=== PATIENT | female | born 1955 | race Caucasian/White ===

== ENCOUNTER → 2017-01-01 | Outpatient (CLI) | payer OTHER | LOC: FIMAGING 13:33 | DX: Z12.31 Encounter for screening mammogram for malignant neoplasm of breast (principal); Z80.3 Family history of malignant neoplasm of breast | CPT/HCPCS: G0202 ==

== ENCOUNTER → 2017-02-23 | Outpatient (CLI) | payer OTHER | LOC: FIMAGING 11:46 | PROVIDERS: ATTEND Physician Assistant | DX: M99.71 Connective tissue and disc stenosis of intervertebral foramina of cervical region (principal); M43.02 Spondylolysis, cervical region ==

== ENCOUNTER → 2018-01-07 | Outpatient (CLI) | payer OTHER | LOC: FIMAGING 08:14 | PROVIDERS: ATTEND Family Medicine | DX: Z12.31 Encounter for screening mammogram for malignant neoplasm of breast (principal) ==

== ENCOUNTER 2018-03-27 11:28 | Observation (INO) | payer OTHER ==
[2018-03-27] MEDS ORDERED: diphenhydrAMINE 25 MG CAP PO ONE (11:52)
[2018-03-27] MEDS ORDERED: DIAZEPAM 5 MG TAB PO ONE (11:52)
[2018-03-27] MEDS ORDERED: ASPIRIN EC 325 MG TAB PO ONE (11:52)
[2018-03-27] MEDS ORDERED: FAMOTIDINE 20 MG TAB PO ONE (11:52)
[2018-03-27] MEDS ORDERED: NS 1,000 ML IV ONE (11:52)
--- NOTE | 2018-03-27 12:03 | CPEKG ---
Heart Rate: 68 RR Interval: 882 P-R Interval: 156 QRSD Interval: 72 QT Interval: 448 QTC Interval: 477 P [place]: 54 QRS [place]: 35 T Wave [place]: 42 EKG Severity - NORMAL ECG - EKG Impression: SINUS RHYTHM Electronically Signed By: Celestine Zamora 28-Mar-2018 10:46:34
[2018-03-27 12:16] LABS: PLATELET COUNT 282 10^3/uL (150-400)
[2018-03-27 12:28] LABS: INR 0.93 (0.83-1.16); PROTIME(PATIENT) 12.7 SEC (12.0-15.0)
--- NOTE | 2018-03-27 12:52 | PDHPUP ---
History & Physical Update H&P update statement: This history and physical update is based on an assessment of the patient which was completed after admission or registration (within 24 hours), but prior to the surgery/procedure. pt is going to have c angio due to abnl ett / fam hx of premature cad / hbp / hlp all ? ans H&P update: H&P reviewed & patient examined, no change in patient's condition since H&P completed
--- NOTE | 2018-03-27 12:53 | PDPROPOC ---
Sedation Plan of Care Sedation Plan of Care: vital signs stable, mental status noted, patient educated of risks, benefits, alternatives, patient can tolerate sedation ASA Classification: ASA 1 Planned drugs: fentanyl, midazolam Mallampati Score: Class 1 Mallampati Reference Image: Patient passed 3-3-2 rule?: Yes
[2018-03-27] MEDS ORDERED: LIDOCAINE 1% 300 MG/30 ML SDV ONE (12:55)
[2018-03-27] MEDS ORDERED: MIDAZOLAM 2 MG/2 ML VIAL ONE ×3 (12:56→14:02)
[2018-03-27] MEDS ORDERED: IOPAMIDOL (ISOVUE-370) 150 ML BTL IV ONE ×2 (12:56→16:54)
[2018-03-27] MEDS ORDERED: fentaNYL 100 MCG/2 ML INJ ONE ×4 (12:56→14:17)
[2018-03-27] MEDS ORDERED: NITROGLYCERIN 1,500 MCG/15 ML VIAL MISC ONE (14:05)
[2018-03-27] MEDS ORDERED: HEPARIN 10,000 UNIT/10 ML MDV (1,000 UNIT/ML) ONE (14:16)
[2018-03-27] MEDS ORDERED: KETOROLAC 30 MG/1 ML SDV IVP ONE (15:20)
[2018-03-27] MEDS ORDERED: ONDANSETRON 4 MG/2 ML VIAL IVP PRN (15:22)
[2018-03-27] MEDS ORDERED: HYDROCODONE/APAP 5/325 TAB PO PRN (15:22)
[2018-03-27] MEDS ORDERED: OXYCODONE/APAP 5/325 TAB PO PRN (15:22)
[2018-03-27] MEDS ORDERED: NITROGLYCERIN 0.4 MG BTL SL PRN (15:22)
[2018-03-27] MEDS ORDERED: ATROPINE SULFATE 1 MG/10 ML SYR IVP PRN (15:22)
[2018-03-27] MEDS ORDERED: KETOROLAC 30 MG/1 ML SDV ONE (15:26)
--- NOTE | 2018-03-27 16:00 | CPIP ---
[f rep st] INVASIVE CARDIAC PROCEDURE DATE OF PROCEDURE: 03/27/2018 PROCEDURE PERFORMED: Left heart catheterization, left ventriculogram, right and left coronary arteri ogram. INDICATIONS: 1. The patient had a positive treadmill exercise stress test. 2. She also had a family history of premature coronary disease. 3. She has a history of hypertension. 4. She has history of hyperlipidemia. 5. It was recommended the patient undergo coronary angiography and she was given the options of furt her nuclear stress testing, etc., and wanted to proceed with coronary angiography. 6. I reviewed the risks with she and her of stroke, , limb loss, renal failure, myocard ial infarction, injury to the leg or vessels, bleeding and infection in the pre cath area with both h er and herself and went over all the alternative options to an invasive test at this point, a nd they want to proceed. 7. We then proceeded with the procedure. PROCEDURE IN DETAIL: 1. The patient had a left heart catheterization. 2. Left ventricular end-diastolic pressure 15 mmHg. 3. No aortic stenosis. LEFT VENTRICULOGRAM: Normal left ventricular systolic function. No regional wall motion abnormaliti es. No significant mitral regurgitation. LEFT MAIN CORONARY ANGIOGRAPHY: 1. Left main coronary artery is normal. 2. The left anterior descending artery is normal. 3. The circumflex coronary artery and all the major branches are normal. 4. The right coronary artery is normal and dominant. 5. The sheath was placed with the ultrasonic probe at the beginning of the of the procedure and exce llent return of blood flow was obtained. At the end of the study, when an injection was done to see if the patient was candidate for Angio-Seal, it was clear that there was not good distal blood flow a nd a question of dissection arose of the iliac artery. Dr. Huma Burnette came into the room from the interventional Radiology Service within 3-minutes of our doin g the injection and then she proceeded to do an angioplasty procedure of the external iliac artery. At the end of that procedure, the patient had excellent blood flow and Dr. Burnette recommended that we pr oceed with Angio-Seal and 2-hours later, the patient could be up and walking and then would be ready to go home than need to stay in the hospital any longer than usual or overnight. The patient immediately had excellent blood flow to the lower extremity. CONCLUSIONS: 1. Normal coronary angiography. 2. Dissection of the external iliac. /[id number]/MODL
--- NOTE | 2018-03-27 16:29 | CPIP ---
[f rep st] INVASIVE CARDIAC PROCEDURE FOLLOWUP ADDENDUM: Procedure was left heart catheterization, left ventriculogram, right and left cor onary arteriogram. I just left the patient's bedside. She is having some cramping in her calf. She has excellent dista l pulses that are palpable, and they are equal to the other side, both posterior tibial and dorsalis pedis. She has great color in both extremities that is equal. Her complaints of some calf pain were discussed with Dr. Burnette, and she felt that it was understandable given the procedure the patient had. We have given the patient some Toradol for outpatient medications. Dr. Burnette recommended following u p with Motrin. We discussed anticoagulation and the recommendation is to just have the patient take aspirin 81 mg a day. She has already had an aspirin dose today, and the patient will continue that. I talked to the patient and her about she would like very much to go home today, and Dr. Burnette thinks that is reasonable. But if she should be at home and have significant pain or any other quest ions or troubles to come back to the emergency room at any time, and then they are going to have a fo llowup visit with me. All their questions have been answered. /[id number]/MODL
[2018-03-27] MEDS: LOSARTAN POTASSIUM 50 MG TAB PO SCH ×2 (18:36→18:38)
[2018-03-27] MEDS: ENOXAPARIN 60 MG/0.6 ML SYR SC SCH (20:16)
[2018-03-27] MEDS: KETOROLAC 15 MG/1 ML SDV IVP PRN (20:16)
[2018-03-27] MEDS ORDERED: FAMOTIDINE 20 MG TAB PO SCH (21:00)
[2018-03-27] MEDS ORDERED: ENOXAPARIN 40 MG/0.4 ML SYR SC SCH (21:00)
[2018-03-27] MEDS ORDERED: CHOLECALCIFEROL VIT D3 1,000 UNITS TAB PO SCH (21:00)
[2018-03-27] MEDS ORDERED: ATORVASTATIN CALCIUM 40 MG TAB PO SCH (21:00)
[2018-03-27] MEDS ORDERED: CIMETIDINE 400 MG PO SCH (21:00)
[2018-03-27] MEDS ORDERED: CARISOPRODOL 350 MG TAB PO SCH (21:00)
[2018-03-27] MEDS ORDERED: ASPIRIN 81 MG CHEWABLE TAB PO SCH (21:00)
[2018-03-28] MEDS: KETOROLAC 15 MG/1 ML SDV IVP PRN ×2 (01:25→08:44)
[2018-03-28] MEDS: LOSARTAN POTASSIUM 50 MG TAB PO SCH (08:43)
--- NOTE | 2018-03-28 09:14 | SOAPPROG ---
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 Plan: Serum Cr pending this am. CTA with Runoff later this morning. 03/28/18 09:13 Subjective: "Leg feels a little better." Ambulated Objective: Vital Signs Temp Pulse Resp BP Pulse Ox 37.1 C 70 12 137/86 H 97 03/28/18 07:13 03/28/18 07:13 03/28/18 07:13 03/28/18 07:13 03/28/18 07:13 Laboratory Results 03/27/18 12:13 03/27/18 12:13 03/27/18 03/28/18 03/29/18 05:59 05:59 05:59 Intake Total 250 Balance 250 PT 12.7 SEC (12.0-15.0) 03/27/18 12:13 INR 0.93 (0.83-1.16) 03/27/18 12:13 Compared to LT leg, RT leg has some limited dorsiflexion due to calf pain. Pulses normal on palpation, and symmetric bilaterally. ICD10 Worksheet Patient Problems: Problems Problem Status Onset Chest pain Acute - ICD10 Problem Qualifiers (1) Chest pain
[2018-03-28] MEDS ORDERED: IOPAMIDOL (ISOVUE-370) 150 ML BTL IV ONE (10:55)
[2018-03-28 11:05] VITALS: BP 121/82
[2018-03-28] MEDS: ENOXAPARIN 60 MG/0.6 ML SYR SC SCH (12:06)
[2018-03-28] MEDS ORDERED: amLODIPine BESYLATE 5 MG TAB PO SCH (12:45)
--- NOTE | 2018-03-28 13:55 | ASMTLACE ---
CHAITANYAE Length of stay for Answers: 1 day current admission Acuity / Level of Answers: Yes Care: Did the patient have an inpatient admission? Comorbidities - select Answers: Other Notes: Required left heart all that apply catherization, left ventriculogram, right a nd left coronary arteriogr am # of Emergency department Answers: 0 visits in the last 6 months Score: 5 Date Signed: 03/28/2018 01:54 PM Electronically Signed By:Bailey Elise
--- NOTE | 2018-03-28 14:21 | ASDISCHSUM ---
Discharge Information Plan Status:Home with No Needs Medically Cleared to Leave:03/28/2018 Discharge Date:03/28/2018 02:15 PM CM D/C Disposition:Home, Routine, Self-Care ADT D/C Disposition:Home, Routine, Self-Care Projected Discharge Date:03/28/2018 02:15 PM Transportation at D/C: Discharge Delay Reason: Follow-Up Date:03/28/2018 02:15 PM Discharge Slot: Final Diagnosis: Placement Information Patient Contact Information Contact Name:QINGROSALBALuis Relationship: Address:[address] [place] City:[facility] Phone: [facility]/Zip Code:[place] [address] Email: Financial Information Financial Class:HMO and PPO Plans Primary Plan Desc:LEYLA [employer]ARTON PPO POS Primary Plan Number:[id number] Secondary Plan Desc: Secondary Plan Number: Assessment Information LACE LACE Length of stay for Answers: 1 day current admission Acuity / Level of Answers: Yes Care: Did the patient have an inpatient admission? Comorbidities - select Answers: Other Notes: Required left heart all that apply catherization, left ventriculogram, right a nd left coronary arteriogr am # of Emergency department Answers: 0 visits in the last 6 months Score: 5 Date Signed: 03/28/2018 01:54 PM Electronically Signed By:Bailey Elise Case Management Discharge Plan Note Case Management Discharge Discharge Order Complete? Answers: Yes Patient to Obtain Answers: Independently Medications Transportation Arranged Answers: Family/Friends Family Notified Answers: Yes Discharge Comments Notes: Pt discharging home independently due to not having any recommended after care needs. Date Signed: 03/28/2018 01:56 PM Electronically Signed By:Bailey Elise Intervention Information
--- NOTE | 2018-03-28 14:54 | GDS ---
[f rep st] DISCHARGE SUMMARY DISCHARGE DIAGNOSES: 1. Abnormal stress test, status post left heart catheterization with normal course. 2. 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 3. Hypertension. 4. Dyslipidemia. PROCEDURES: 1. 03/27/2018, cardiac catheterization, which showed normal coronary arteries. At the end of the st udy, it was discovered that the patient had no distal blood flow suggestive of iliac artery dissectio n. 2. 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 Burnette for iliac artery dissection. 3. 03/28/2018, CT-A of the aorta with runoff, which showed resolution of right external iliac artery dissection, minimal divot at the common femoral artery entrance site that is not rate limiting, wide ly patent bilateral lower extremity runoff. BRIEF HISTORY: Please see dictated H and P from our office for complete details. In brief, the delfino ent is a 62-year-old female who recently presented for palpitations, exertional fatigue, and labile b lood pressure. A stress test was ordered and showed [address]-depression on exertion. She proceeded t o left heart catheterization and was found to have normal coronary arteries. Her procedure was compl icated by an external iliac artery dissection, which required angioplasty within this admission. She was kept overnight due to ongoing pain in her calf. On day of discharge, she had an aortic CT-A wit h runoff, which showed patent bilateral runoff and good resolution of dissection at the external erika c site. PHYSICAL EXAMINATION: VITAL SIGNS: On day of discharge, blood pressure 121/82, heart rate 82, respi rations 16, O2 saturation 97% on room air, temp of 98.2 degrees Fahrenheit. GENERAL: Ss a very plea patricia female in no apparent distress. HEENT: Normocephalic, atraumatic. Eyes are PERRL. HEART: Re gular rate and rhythm. Bilateral extremities are warm with 2+ PT and DP pulses. LABORATORY DATA: Creatinine on day of discharge is 1. Total cholesterol 225, triglycerides 154, LDL 118, HDL 76. RESULTS PENDING: None. DIET: Per previous. ACTIVITY: Groin precautions were reviewed. DISCHARGE MEDICATIONS: Please see medication reconciliation. She is being continued on her home ibu profen, cimetidine, cholecalciferol, losartan, Soma, atorvastatin, aspirin, and clonidine. Her new m edication will be amlodipine 5 mg p.o. daily to be taken at lunch time for afternoon elevated blood p ressures. DISCHARGE INSTRUCTIONS: Follow up in 1 week's time as scheduled. /[id number]/MODL
[2018-03-28] MEDS ORDERED: FAMOTIDINE 20 MG TAB PO SCH (21:00)
== END 2018-03-28 14:15 | disposition home or self-care (01) ==
LOC: FCATH 11:28 → F2W 16:14
PROVIDERS: ADMIT Internal Medicine; ATTEND Internal Medicine
PROC: 4A023N7 Measurement of Cardiac Sampling and Pressure, Left Heart, Percutaneous Approach (ICD-10-PCS; principal; 2018-03-27)
PROC: B2151ZZ Fluoroscopy of Left Heart using Low Osmolar Contrast (ICD-10-PCS; principal; 2018-03-27)
PROC: B2111ZZ Fluoroscopy of Multiple Coronary Arteries using Low Osmolar Contrast (ICD-10-PCS; principal; 2018-03-27)
DX: R94.39 Abnormal result of other cardiovascular function study (principal); I77.72 Dissection of iliac artery; I10 Essential (primary) hypertension; E78.5 Hyperlipidemia, unspecified
CPT/HCPCS: 75635; 93005; 93458; C1725; G0378; C1769; J1644; J1650; J1885; J2250; J3010; Q9967

== ENCOUNTER → 2019-01-23 | Outpatient (CLI) | payer OTHER | LOC: FIMAGING 12:45 | PROVIDERS: ATTEND Family Medicine | DX: Z12.31 Encounter for screening mammogram for malignant neoplasm of breast (principal); Z80.3 Family history of malignant neoplasm of breast ==